=== PATIENT | female | born 1955 | race Caucasian/White ===

== ENCOUNTER 2020-01-05 12:32 | Emergency (ER) | payer OTHER ==
--- NOTE | 2020-01-05 12:47 | EDM.PDOC ---
ED HPI GENERAL MEDICAL PROBLEM - General Chief Complaint: Lower Extremity Injury/Pain Stated Complaint: fall, right hip/ankle pain Time Seen by Provider: 01/05/20 12:32 Source of Information: Reports: Patient, Family ( and multiple). Denies : Old Records (No [facility] records available) History Limitations: Reports: No Limitations - History of Present Illness INITIAL COMMENTS - FREE TEXT/NARRATIVE: The patient was brought to the emergency room via private automobile by her [id number], Liss, and multiple family members. The patient was walking out of the voodoo after a this morning at about 11:20 a.m. when she missed a step and twisted her right ankle and fell onto her right hip onto the concrete stairs. She did not fall and appreciable distance. She has been unable to walk or bear weight on this leg and said injury. She rates her discomfort at 8/10. No previous injury to these areas. She denies any head injury, loss of consciousness, change in mental status, visual changes, paresthesias, neck/back pain, neurological deficits, or other complaints or injuries. The patient denies any chest pain/pressure, heart flutter, dizziness, orthostasis, orthopnea , diaphoresis, paresthesias, recent decreased exercise tolerance, or any other anginal-type symptoms. No recent history of abdominal pain, heartburn, nausea, diarrhea, melena, gross hematochezia, or any food intolerance, including fatty foods, etc.. She denies any gross hematuria, colic, or other UTI symptoms. The patient also denies any recent fever, cough, wheezing, dyspnea, etc.. Onset: Today, Sudden Onset Date: 01/05/20 Onset Time: 12:20 Duration: Constant Location: Reports: Lower Extremity, Right. Denies: Head, Face, Neck, Chest, Abdomen, Back, Pelvis, Upper Extremity, Left, Upper Extremity, Right, Lower Extremity, Left, Radiates to Quality: Reports: Sharp, Stabbing Severity: Moderate Improves with: Reports: Rest Worsens with: Reports: Movement Context: Reports: Trauma (As above) Associated Symptoms: Denies: Confusion, Chest Pain, Cough, Diaphoresis, Fever/ Chills, Headaches, Loss of Appetite, Nausea/Vomiting, Rash, Seizure, Shortness of Breath, Syncope, Weakness Treatments AGENT LICENSING CLERK: Reports: Other (see below) (None) Right Hip Pain Score (Numeric/FACES): 8 - Related Data Allergies Allergy/AdvReac Type Severity Reaction Status Date / Time No Known Allergies Allergy Verified 01/05/20 12:34 Home Meds: Home Meds Apixaban [Eliquis] 5 mg PO BID 01/05/20 [History] Calcium Carbonate/Vitamin D3 [Calcium 600 + Vit D Tablet] 1 tab PO DAILY [History] Diltiazem HCl [Cardizem] 30 mg PO ASDIRECTED PRN 01/05/20 [History] Fish Oil/DHA/EPA [Fish Oil 1,200 MG] 1 tab PO DAILY 01/05/20 [History] Metoprolol Tartrate 25 mg PO DAILY 01/05/20 [History] Multivitamin [Multi-Vitamin Daily] 1 tab PO DAILY 01/05/20 [History] Non-Formulary Medication [NF Drug] 180 mcg PO DAILY 01/05/20 [History] Propafenone [Rythmol] 1 tab PO TID 01/05/20 [History] Red Yeast Rice 600 mg PO DAILY 01/05/20 [History] Past Medical History HEENT History: Reports: Impaired Vision, Other (See Below). Denies: Allergic Rhinitis, Cataract, Glaucoma, Hard of Hearing, Macular Degeneration Other HEENT History: Patient wears glasses and hard contact lenses. Cardiovascular History: Reports: Afib. Denies: Aneurysm, Arrhythmia, Blood Clots/VTE/DVT, CAD, Heart Failure, High Cholesterol, Hypertension, [place], Syncope Respiratory History: Reports: None. Denies: Asthma, Bronchitis, Recurrent, COPD , Intubation, Previous, PE, Pneumothorax, Sleep Apnea Gastrointestinal History: Reports: None. Denies: Celiac Disease, Cholelithiasis , Gastritis, GERD, GI Bleed, Inflammatory Bowel Disease, Irritable Bowel Syndrome, PUD Genitourinary History: Reports: None. 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 Full term without complications during pregnancies or deliveries Musculoskeletal History: Reports: Arthritis, Gout, Osteoarthritis. Denies: Back Pain, Chronic, Fracture, Neck Pain, Chronic, RA Neurological History: Reports: None. Denies: Concussion, CVA, Head Trauma, TIA Psychiatric History: Reports: None. Denies: Anxiety, Depression, Psych Hospitalization(s), Suicide Attempt, Suicidal Ideation Endocrine/Metabolic History: Reports: Hyperthyroidism, Hypothyroidism, Other ( See Below). Denies: Diabetes, Gestational, Diabetes, Type I, Diabetes, Type II , Diabetes Mellitus, Type 3c, IDDM Other Endocrine/Metabolic History: History of I131 ablation for hyperthyroidism with subsequent secondary hypothyroidism. Hematologic History: Reports: None. Denies: Anemia, Blood Transfusion(s) Immunologic History: Reports: None. Denies: AIDS, HIV, SLE Oncologic (Cancer) History: Reports: None. Denies: Basal Cell Carcinoma, Cervix , Colon, Hodgkin's Lymphoma, Leukemia, Lymphoma, Malignant Melanoma, Non-Hodgkin 's Lymphoma, Ovarian, Squamous Cell Carcinoma, Thyroid, Uterine Dermatologic History: Reports: None. Denies: Eczema, Psoriasis - Infectious Disease History Infectious Disease History: Reports: Chicken Pox, Measles, Rubella, Shingles ( Right shoulder in the 1990s.). Denies: C-Difficile, Meningitis, Mononucleosis, MRSA, Mumps, Rheumatic Fever, Scarlet Fever, TB, VRE - Past Surgical History Head Surgeries/Procedures: Reports: None HEENT Surgical History: Reports: None. Denies: Cataract Surgery, Eye Surgery, Laser Surgery, LASIK, Myringotomy w Tube(s), Naso-Sinus Surgery, Tonsillectomy Cardiovascular Surgical History: Reports: None. Denies: Varicose Respiratory Surgical History: Reports: None. Denies: Thoracentesis GI Surgical History: Reports: Colonoscopy, Other (See Below). Denies: Appendectomy, Cholecystectomy, EGD, Hernia, Abdominal, Hernia, Inguinal, Hernia Repair/Other Other GI Surgeries/Procedures: Colonoscopy in 2018 Female Surgical History: Reports: None. Denies: Breast Biopsy, D&C, Hysterectomy, Tubal Ligation Endocrine Surgical History: Reports: None Neurological Surgical History: Reports: None. Denies: C-Spine, Discectomy, Laminectomy, Lumbar Spine, Sacral Spine, Spinal Fusion, Thoracic Spine, Vertebroplasty Musculoskeletal Surgical History: Reports: None. Denies: Amputation, Arthroscopic Procedure, Carpal Tunnel, Ganglion Cyst, Joint Replacement, ORIF, Shoulder Surgery Oncologic Surgical History: Reports: None Dermatological Surgical History: Reports: None Social & Family History - Tobacco Use Smoking Status *Q: Never Smoker Tobacco Use Within Last Twelve Months: No Used Tobacco, but Quit: No Smoking Cessation Information Provided To Patient: No Second Hand Smoke Exposure: No Second Hand Smoke Education Provided: No - Living Situation & Occupation Living situation: Reports: Occupation: Retired Review of Systems - Review of Systems Review Of Systems: Comprehensive ROS is negative, except as noted in HPI. ED EXAM, GENERAL - Physical Exam Exam: See Below Exam Limited By: No Limitations General Appearance: Alert, WD/WN, No Apparent Distress Head: Atraumatic, Normocephalic. No: Facial Swelling, Facial Tenderness, Sinus Tenderness Neck: Normal Inspection, Supple, Non-Tender, Full Range of Motion. No: Lymphadenopathy (L), Lymphadenopathy (R), Thyromegaly Respiratory/Chest: No Respiratory Distress, Lungs Clear, Normal Breath Sounds, No Accessory Muscle Use, Chest Non-Tender. No: Pleural Rub, Retractions Cardiovascular: Normal Peripheral Pulses, No Edema, No Gallop, No JVD, No Murmur , No Rub, Irregularly Irregular (Although occasional regular rhythm with regular rate). No: Gallop/S3, Gallop/S4, Friction Rub Peripheral Pulses: 2+: Radial (L), Radial (R), Dorsalis Pedis (L), Dorsalis Pedis (R) GI/Abdominal: Normal Bowel Sounds, Soft, Non-Tender, No Organomegaly, No Distention, No Abnormal Bruit, No Mass, Pelvis Stable. No: Guarding (Female) Exam: Deferred Rectal (Female) Exam: Deferred Back Exam: Normal Inspection, Full Range of Motion. No: CVA Tenderness (L), CVA Tenderness (R), Muscle Spasm Extremities: Joint Swelling (Minimal right ankle effusion with mild right lateral malleolar palpation pain. No joint instability including negative anterior drawers, etc. No crepitation or deformity. Moderate palpation pain over the right hip with no leg rotation), Limited Range of Motion (Right hip and right ankle secondary to discomfort). No: Pedal Edema, Tl's Sign Neurological: Alert, Oriented, CN II-XII Intact, Normal Cognition, Normal Gait, Normal Reflexes, No Motor/Sensory Deficits Psychiatric: Normal Affect, Normal Mood Skin Exam: Wound/Incision (0.25 cm superficial laceration over the extensor surface at the IP joint of digit #2 of the left hand) Lymphatic: No Adenopathy Course - Vital Signs Last Recorded V/S: Last Vital Signs Temp 36.7 C 01/05/20 12:43 Pulse 76 01/05/20 12:43 Resp 16 01/05/20 12:43 BP 131/58 L 01/05/20 12:43 Pulse Ox 100 01/05/20 12:43 - Orders/Labs/Meds Orders: Active Orders 24 hr Category Date Time Status Cardiac Monitoring [RC] . DIRECTED Care 01/05/20 14:55 Active Peripheral IV Care [RC] . DIRECTED Care 01/05/20 13:07 Active Ankle Min 3V Rt [CR] Stat Exams 01/05/20 12:48 Taken Hip Min 2V or 3V w Pelvis Rt [CR] Stat Exams 01/05/20 12:48 Taken Sodium Chloride 0.9% [Saline Flush] Med 01/05/20 13:07 Active 10 ml FLUSH ASDIRECTED PRN Obtain Past Medical Record [OM.PC] Routine Oth 01/05/20 12:47 Active Peripheral IV Insertion Adult [OM.PC] Routine Oth 01/05/20 13:07 Ordered Medication Orders Sodium Chloride (Saline Flush) 10 ml FLUSH ASDIRECTED PRN PRN Reason: Keep Vein Open Last Admin: 01/05/20 13:26 Dose: 10 ml Labs: None Meds: Medications Generic Name Dose Route Start Last Admin Trade Name Freq PRN Reason Stop Dose Admin Sodium Chloride 10 ml 01/05/20 13:07 01/05/20 13:26 Saline Flush FLUSH 10 ml ASDIRECTED PRN Administration Keep Vein Open Discontinued Medications Generic Name Dose Route Start Last Admin Trade Name Freq PRN Reason Stop Dose Admin Hydromorphone HCl 1 mg 01/05/20 13:08 01/05/20 13:26 Dilaudid IVPUSH 01/05/20 13:09 1 mg ONETIME ONE Administration Ondansetron HCl 4 mg 01/05/20 13:07 01/05/20 13:26 Zofran IVPUSH 01/05/20 13:08 4 mg ONETIME ONE Administration - Radiology Interpretation Free Text/Narrative:: intellectual property paralegal shows normal sinus rhythm with possible occasional arrhythmia/ atrial fibrillation with heart rate in the 70s to 80s. X-rays of the right ankle, complete, shows no evidence of fracture, dislocation , etc. X-rays of the right hip, 2 views, with additional one view of the pelvis shows evidence of moderate osteoarthritic changes, including coxarthrosis. Additional nondisplaced, non-angulated intertrochanteric fracture. Note x-ray findings were confirmed via telephone consultation with the radiologist at [facility] at 14:[address] Results Date: 01/05/20 CT Results Time: 14:21 Departure - Departure Time of Disposition: 15:20 Disposition: DC/Tfer to [facility] 02 Condition: Good Clinical Impression: Closed intertrochanteric fracture of right hip Qualifiers: Encounter type: initial encounter Fracture alignment: nondisplaced Qualified Code(s): S72.144A - Nondisplaced intertrochanteric fracture of right femur, initial encounter for closed fracture Atrial fibrillation Qualifiers: Atrial fibrillation type: longstanding persistent Qualified Code(s): I48.11 - Longstanding persistent atrial fibrillation Osteoarthritis Qualifiers: Osteoarthritis location: multiple joints Osteoarthritis type: primary Qualified Code(s): M15.0 - Primary generalized (osteo)arthritis Right ankle sprain Qualifiers: Encounter type: initial encounter Involved ligament of ankle: tibiofibular ligament Qualified Code(s): S93.431A - Sprain of tibiofibular ligament of right ankle, initial encounter - Discharge Information *PRESCRIPTION DRUG MONITORING PROGRAM REVIEWED*: Not Applicable *COPY OF PRESCRIPTION DRUG MONITORING REPORT IN PATIENT RADHA: Not Applicable Referrals: PCP,Unobtain [Ordering Only Provider] - Forms: ED Department Discharge, Interfacility Transfer [facility] Sepsis Event Note - Evaluation Sepsis Screening Result: No Definite Risk - Focused Exam Vital Signs: Vital Signs Temp Pulse Resp BP Pulse Ox 01/05/20 12:43 36.7 C 76 16 131/58 L 100 Date Exam was Performed: 01/05/20 Time Exam was Performed: 15:57 - Problem List & Annotations (1) Closed intertrochanteric fracture of right hip SNOMED Code(s): 39104135, 21276960759338302 Code(s): S72.141A - DISPLACED INTERTROCHANTERIC FRACTURE OF RIGHT FEMUR, INIT Status: Acute Priority: High Current Visit: Yes Onset Date: Annotation/Comment:: Radiological findings confirmed with the radiologist at [facility] as above. Note that IV Dilaudid therapy was needed for pain control with excellent results. Telephone consultation at 14:[address] Randolph, hospitalist at [facility], who does accept the patient for direct admission, orthopedic consultation, etc., with no further treatment recommendations given. Ambulance transfer with food service technician accompaniment. Qualifiers: Encounter type: initial encounter Fracture alignment: nondisplaced Qualified Code(s): S72.144A - Nondisplaced intertrochanteric fracture of right femur, initial encounter for closed fracture (2) Right ankle sprain SNOMED Code(s): 72610804 Code(s): S93.401A - SPRAIN OF UNSPECIFIED LIGAMENT OF RIGHT ANKLE, INIT ENCNTR Status: Acute Priority: High Current Visit: Yes Onset Date: Annotation/Comment:: Mild ankle sprain. Consider air ankle splint by accepting providers. Qualifiers: Encounter type: initial encounter Involved ligament of ankle: tibiofibular ligament Qualified Code(s): S93.431A - Sprain of tibiofibular ligament of right ankle, initial encounter (3) Atrial fibrillation SNOMED Code(s): 54314169 Code(s): I48.91 - UNSPECIFIED ATRIAL FIBRILLATION Status: Chronic Priority: Medium Current Visit: Yes Annotation/Comment:: No Chest pain or anginal type symptoms. Occasional sinus rhythm based on telemetry strip today. Per her 's history she is scheduled for a cardiac ablation at home in the near future. Note current Eliquis therapy. She was transferred with telemetry. Qualifiers: Atrial fibrillation type: longstanding persistent Qualified Code(s): I48.11 - Longstanding persistent atrial fibrillation (4) Osteoarthritis SNOMED Code(s): 422694814 Code(s): M19.90 - UNSPECIFIED OSTEOARTHRITIS, UNSPECIFIED SITE Status: Chronic Priority: Medium Current Visit: Yes Annotation/Comment:: Otherwise stable by history. Qualifiers: Osteoarthritis location: multiple joints Osteoarthritis type: primary Qualified Code(s): M15.0 - Primary generalized (osteo)arthritis - Problem List Review Problem List Initiated/Reviewed/Updated: Yes - My Orders Last 24 Hours: My Active Orders 01/05/20 12:47 Obtain Past Medical Record [OM.PC] Routine 01/05/20 12:48 Ankle Min 3V Rt [CR] Stat Hip Min 2V or 3V w Pelvis Rt [CR] Stat 01/05/20 13:07 Peripheral IV Care [RC] . DIRECTED Sodium Chloride 0.9% [Saline Flush] 10 ml FLUSH ASDIRECTED PRN Peripheral IV Insertion Adult [OM.PC] Routine 01/05/20 14:55 Cardiac Monitoring [RC] . DIRECTED - Assessment/Plan Last 24 Hours: My Active Orders 01/05/20 12:47 Obtain Past Medical Record [OM.PC] Routine 01/05/20 12:48 Ankle Min 3V Rt [CR] Stat Hip Min 2V or 3V w Pelvis Rt [CR] Stat 01/05/20 13:07 Peripheral IV Care [RC] . DIRECTED Sodium Chloride 0.9% [Saline Flush] 10 ml FLUSH ASDIRECTED PRN Peripheral IV Insertion Adult [OM.PC] Routine 01/05/20 14:55 Cardiac Monitoring [RC] . DIRECTED Assessment:: As above Plan: As above. Extensive precautions were given to the patient and her family, who are in agreement with the treatment plan. Ambulance transfer with food service technician Limited as above.
[2020-01-05] MEDS ORDERED: Ondansetron 4 MG/2 ML SDV IVPUSH ONE (13:07)
[2020-01-05] MEDS ORDERED: Sodium Chloride 0.9% 10 ML Syringe FLUSH PRN (13:07)
[2020-01-05] MEDS ORDERED: HYDROmorphone 1 MG/ML Syringe IVPUSH ONE (13:08)
== END 2020-01-05 15:20 ==
LOC: LL.ED 12:32
DX: S72.144A Nondisplaced intertrochanteric fracture of right femur, initial encounter for closed fracture (principal); S93.431A Sprain of tibiofibular ligament of right ankle, initial encounter; M15.0 Primary generalized (osteo)arthritis; I48.11 Longstanding persistent atrial fibrillation; I48.91 Unspecified atrial fibrillation; Z79.899 Other long term (current) drug therapy; M10.9 Gout, unspecified; E03.9 Hypothyroidism, unspecified; W10.9XXA Fall (on) (from) unspecified stairs and steps, initial encounter
CPT/HCPCS: 73610-RT; 96374; 96375; 99284-25; J1170; J2405